=== PATIENT | male | born 1950 | race Caucasian/White ===

== ENCOUNTER 2022-08-26 15:41 | Emergency (ER) | payer MEDICARE, BC ==
[~2022-08-26] VITALS: Ht 180.3 cm; Wt 90.9 kg
[2022-08-26] MEDS ORDERED: LISI10TA22 PO (16:00)
[2022-08-26] MEDS ORDERED: LEXA1TAB2 PO (16:00)
[2022-08-26] MEDS ORDERED: ATEN50TA2 PO (16:00)
[2022-08-26] MEDS ORDERED: CRES10TA PO (16:00)
[2022-08-26] MEDS ORDERED: ATEN25TA PO (16:00)
[2022-08-26] MEDS ORDERED: ZETI10TA16 PO (16:00)
[2022-08-26 16:42] LABS: BASO # 0.1 10^3/uL (0.0-0.2); BASO % 0.8 % (0.0-1.0); EOS # 0.3 10^3/uL (0.0-0.5); EOS % 4.1 % (0.0-3.0); HEMATOCRIT 43.3 % (42.0-52.0); HEMOGLOBIN 14.2 g/dl (13.5-17.5); LYMPH % 16.2 % (24.0-44.0); MEAN CORPUSCULAR HEMOGLOBIN 29.6 pg (27.0-33.0); MEAN CORPUSCULAR HGB CONC 32.8 g/dl (32.0-36.5); MEAN CORPUSCULAR VOLUME 90.4 fl (80.0-96.0); MONO # 0.8 10^3/uL (0.0-0.8); MONO % 12.7 % (2.0-8.0); NEUTROPHILS # 4.1 10^3/uL (1.5-8.5); NEUTROPHILS % 65.6 % (36.0-66.0); PLATELET COUNT, AUTOMATED 220 10^3/uL (150-450); RED BLOOD COUNT 4.79 10^6/uL (4.30-6.10); WHITE BLOOD COUNT 6.3 10^3/uL (4.0-10.0)
[2022-08-26 16:57] LABS: CK-MB VALUE MASS < 1.0 NG/ML (<3.6)
[2022-08-26 17:00] LABS: BLOOD UREA NITROGEN 22 MG/DL (9-23); CALCIUM LEVEL 9.7 MG/DL (8.3-10.6); CARBON DIOXIDE LEVEL 26 MMOL/L (20-31); CHLORIDE LEVEL 103 MMOL/L (98-107); CPK CREATINE PHOSPHOKINASE 69 U/L (46-171); CREATININE FOR GFR 0.79 MG/DL (0.70-1.30); GLOMERULAR FILTRATION RATE > 60.0 (>42); GLUCOSE, FASTING 112 MG/DL (74-106); MB/CK RELATIVE INDEX 1.44 (< OR =4); POTASSIUM SERUM 4.1 MMOL/L (3.5-5.1); SODIUM LEVEL 136 MMOL/L (136-145)
[2022-08-26 18:07] LABS: CK-MB VALUE MASS < 1.0 NG/ML (<3.6)
[2022-08-26 18:09] LABS: CPK CREATINE PHOSPHOKINASE 68 U/L (46-171); MB/CK RELATIVE INDEX 1.47 (< OR =4)
[2022-08-26 18:45] VITALS: BP 128/60
== END 2022-08-26 19:04 | disposition home or self-care (01) ==
LOC: M ED 15:41
DX: R55 Syncope and collapse (principal); I25.2 Old myocardial infarction; I25.10 Atherosclerotic heart disease of native coronary artery without angina pectoris; I10 Essential (primary) hypertension; E78.5 Hyperlipidemia, unspecified; Z95.5 Presence of coronary angioplasty implant and graft; Z91.041 Radiographic dye allergy status; Z79.899 Other long term (current) drug therapy